=== PATIENT | male | born 1965 | race Caucasian/White ===

== ENCOUNTER 2020-05-03 15:14 | Emergency (ER) | payer MEDICAID ==
[~2020-05-03] VITALS: Ht 188 cm; Wt 97.0 kg
[2020-05-03 15:19] VITALS: BP 134/86
[2020-05-03] MEDS ORDERED: CARV-50 PO (15:37)
[2020-05-03] MEDS ORDERED: TRAZ-256 PO (15:37)
== END 2020-05-03 15:49 | disposition home or self-care (01) ==
LOC: ER 15:15
DX: I11.0 Hypertensive heart disease with heart failure (principal); I50.9 Heart failure, unspecified; Z76.0 Encounter for issue of repeat prescription; Z79.899 Other long term (current) drug therapy
CPT/HCPCS: 99281; 99283